=== PATIENT | female | born 2000 | race African-American/Black ===

== ENCOUNTER 2018-11-26 13:52 | Inpatient (IN) ==
--- NOTE | 2018-11-26 14:10 | OB/GYN PROGRESS NOTE ---
Progress Note OB - . OB Progress Note: Vital Signs - 24 hr 11/26/18 13:34 Temperature 98 F Pulse Rate 80 Respiratory Rate 18 Blood Pressure 135/81 O2 Sat by Pulse Oximetry 100 18 YOBF with IUP at 37.5 weeks presents with c/o contractions since this AM. Thinks she has been leaking. FM +. Denies bleeding. Pt sees Dr Grimes. PMH: denies PSH: denies OB Hx: x2 NKDA SHx: non-smoker Meds: PNV, Fe, stool softner PE: RRR w/o M Pul: clear No CVAT No calf tenderness, no edema Fundus: soft and nontender Abd: soft , nontender Pelvic: 5/70/-2/vtx, clear fluid A/P: IUP 37 weeks in labor with ruptured membranes. Pt is GBS neg. Admit L&D. FHR baseline 130 with accels, 15x15. Cat 1 tracing.
[2018-11-26] MEDS ORDERED: REGLAN PO ONE (14:57)
[2018-11-26] MEDS ORDERED: STADOL IV PRN (14:57)
[2018-11-26] MEDS ORDERED: TYLENOL PO PRN (14:57)
[2018-11-26] MEDS ORDERED: PEPCID PO ONE (14:57)
[2018-11-26] MEDS ORDERED: ZOFRAN IV PRN (14:57)
[2018-11-26] MEDS ORDERED: KEFZOL 1 GM/D5W 1 GM/50 ML IVPB IV PRN (14:57)
[2018-11-26] MEDS ORDERED: PEPCID PO PRN (14:57)
[2018-11-26] MEDS ORDERED: LR 500 ML IV ONE (14:57)
[2018-11-26] MEDS ORDERED: PEPCID IV PRN (14:57)
[2018-11-26] MEDS ORDERED: LR 1,000 ML IV SCH (15:00)
[2018-11-26] MEDS ORDERED: SODIUM CHLORIDE 0.9% INJ SCH (15:00)
[2018-11-26] MEDS ORDERED: PITOCIN 30 UNITS/NS 30 UNIT/500 ML IV.SOLN IV SCH ×2 (15:00→19:30)
[2018-11-26] MEDS ORDERED: FENTANYL-BUPIV-NS 2 MCG-0.1% 250 ML EPIDURAL PRN (15:51)
[2018-11-26 15:52] LABS: BASO# 0.04 X1000 (0.0-0.2); BASO% 0.4 % (0.0-0.8); EOS# 0.24 X1000 (0.0-0.7); EOS% 2.2 % (0.0-10.0); HEMATOCRIT 25.9 % (37.0-47.0); HEMOGLOBIN 7.8 g/dL (12.0-16.0); IMM GRAN# 0.06 X1000 (0.0-0.04); IMM GRAN% 0.6 % (0.0-0.5); LYMPH% 16.7 % (20.5-51.1); MCH 22.8 PG (27-31); MCHC 30.1 g/dL (33-37); MCV 75.7 FL (81-99); MONO# 0.92 X1000 (0.11-0.59); MONO% 8.5 % (1.7-9.3); MPV 10.2 FL (7.4-10.4); NEUT# 7.71 X1000 (1.4-6.5); NEUT% 71.6 % (42.2-75.2); PLT 283 X1000 (130-400); RBC 3.42 XMIL (4.2-5.4); RDW 18.7 % (11.5-14.5); WBC 10.77 X1000 (4.8-10.8)
[2018-11-26] MEDS ORDERED: MARCAINE 0.25% PF INJ ONE (15:56)
[2018-11-26] MEDS ORDERED: NAROPIN 0.2% INJ ONE (16:00)
[2018-11-26 16:48] LABS: URINE SOURCE VOIDED
[2018-11-26 17:07] LABS: BILIRUBIN URINE NEGATIVE (NEGATIVE); BLOOD URINE 2+ (NEGATIVE); CLARITY VERY CLOUDY (CLEAR); COLOR YELLOW; GLUCOSE URINE NEGATIVE (NEGATIVE); KETONE URINE NEGATIVE (NEGATIVE); LEUKOCYTES URINE 1+ (NEGATIVE); NITRITE URINE NEGATIVE (NEGATIVE); PROTEIN URINE TRACE mg/dL (NEGATIVE); SP GRAVITY URINE 1.005; UROBILINOGEN URINE NORMAL
[2018-11-26] MEDS ORDERED: XYLOCAINE-MPF 1% INJ PRN (19:17)
[2018-11-26] MEDS ORDERED: HYDROXYZINE IM PRN (19:17)
[2018-11-26] MEDS ORDERED: AMBIEN PO PRN (19:17)
[2018-11-26] MEDS ORDERED: BENADRYL PO PRN (19:17)
[2018-11-26] MEDS ORDERED: BENADRYL IV PRN (19:17)
[2018-11-26] MEDS ORDERED: ATARAX PO PRN (19:17)
[2018-11-26] MEDS ORDERED: CYTOTEC PO PRN (19:17)
[2018-11-26] MEDS ORDERED: MINERAL OIL PO PRN (19:17)
[2018-11-26] MEDS ORDERED: M-M-R II VACCINE SUBQ ONE (19:17)
[2018-11-26] MEDS ORDERED: PITOCIN IM PRN (19:17)
[2018-11-26] MEDS ORDERED: PERI MEDS (DERMOPLAST/NUPERCAINAL/TUCKS) MISC PRN (19:17)
[2018-11-26] MEDS ORDERED: BOOSTRIX VACCINE IM ONE (19:17)
--- NOTE | 2018-11-26 19:25 | OB/GYN PROGRESS NOTE ---
Progress Note OB - . OB Progress Note: Vital Signs - 24 hr 11/26/18 13:34 11/26/18 14:00 11/26/18 16:00 Temperature 98 F 97.3 F L 97.2 F L Pulse Rate 80 79 85 Respiratory Rate 18 18 18 Blood Pressure 135/81 123/70 134/82 O2 Sat by Pulse Oximetry 100 100 99 11/26/18 16:40 Temperature 97.3 F L Pulse Rate 81 Respiratory Rate 18 Blood Pressure 116/68 O2 Sat by Pulse Oximetry 99 Laboratory Results - last 24 hr 11/26/18 11/26/18 11/26/18 14:01 15:15 15:15 WBC 10.77 RBC 3.42 L Hgb 7.8 L Hct 25.9 L MCV 75.7 L MCH 22.8 L MCHC 30.1 L RDW Std Deviation 18.7 H Plt Count 283 MPV 10.2 Immature Gran % (Auto) 0.6 H Neut % (Auto) 71.6 Lymph % (Auto) 16.7 L [place] % (Auto) 8.5 Eos % (Auto) 2.2 Baso % (Auto) 0.4 Immature Gran # (Auto) 0.06 H Neut # (Auto) 7.71 H Lymph # (Auto) 1.80 [place] # (Auto) 0.92 H Eos # (Auto) 0.24 Baso # (Auto) 0.04 Urine Source VOIDED Urine Color YELLOW Urine Clarity VERY CLOUDY A Urine pH 8.0 Ur Specific [place] 1.005 Urine Protein TRACE A Urine Ketones NEGATIVE Urine Blood 2+ A Urine Nitrite NEGATIVE Urine Bilirubin NEGATIVE Urine Urobilinogen NORMAL Urine WBC 1+ A Urine Glucose NEGATIVE RPR NON-REACTIVE Delivery Note: of a living male over an intact perineum. Placenta delivered spontaneous intact. First degree Perineal laceration repaired with 3-0 chromic. 9-10 Wt: 6 lb 13 oz Male EBL 300 Pt. tolerated procedure well.
[2018-11-26] MEDS ORDERED: PITOCIN 20 UNITS/NS 20 UNITS/1,000 ML IV.SOLN ONE (19:33)
[2018-11-26] MEDS: NORCO-5 PO PRN (20:22)
[2018-11-26] MEDS: MOTRIN PO PRN (20:23)
[2018-11-26 21:32] LABS: UR AMPHETAMINES QUAL NONE DETECTED (NONE DETECT); UR BARBITUATES QUAL NONE DETECTED (NONE DETECT); UR BENZODIAZEPIN QUAL NONE DETECTED (NONE DETECT); UR CANNABINOIDS QUAL NONE DETECTED (NONE DETECT); UR COCAINE QUAL NONE DETECTED (NONE DETECT); UR METHADONE QUAL NONE DETECTED (NONE DETECT); UR METHAMPHETAMINE QUAL NONE DETECTED (NONE DETECT); UR OPIATES QUAL NONE DETECTED (NONE DETECT); UR OXYCODONE QUAL NONE DETECTED (NONE DETECT); UR PCP QUAL NONE DETECTED (NONE DETECT); UR PROPOXYPHENE QUAL NONE DETECTED (NONE DETECT); UR TCA QUAL NONE DETECTED (NONE DETECT)
[2018-11-27] MEDS: PERICOLACE PO SCH ×2 (04:34→21:44)
[2018-11-27] MEDS: NORCO-5 PO PRN ×3 (07:00→21:44)
[2018-11-27] MEDS: MOTRIN PO PRN ×2 (07:00→14:54)
[2018-11-27 07:49] LABS: HEMATOCRIT 24.1 % (37.0-47.0); HEMOGLOBIN 7.2 g/dL (12.0-16.0); MCH 22.9 PG (27-31); MCHC 29.9 g/dL (33-37); MCV 76.5 FL (81-99); PLT 260 X1000 (130-400); RBC 3.15 XMIL (4.2-5.4); RDW 18.7 % (11.5-14.5); WBC 11.69 X1000 (4.8-10.8)
[2018-11-27 07:50] LABS: BASO# 0.04 X1000 (0.0-0.2); BASO% 0.3 % (0.0-0.8); EOS# 0.27 X1000 (0.0-0.7); EOS% 2.3 % (0.0-10.0); IMM GRAN# 0.03 X1000 (0.0-0.04); IMM GRAN% 0.3 % (0.0-0.5); LYMPH# 2.02 X1000 (1.2-3.4); LYMPH% 17.3 % (20.5-51.1); MONO# 1.14 X1000 (0.11-0.59); MONO% 9.8 % (1.7-9.3); MPV 10.2 FL (7.4-10.4); NEUT# 8.19 X1000 (1.4-6.5)
[2018-11-27] MEDS: FERROUS SULFATE PO SCH (08:41)
[2018-11-28] MEDS: MOTRIN PO PRN (02:59)
[2018-11-28] MEDS: NORCO-5 PO PRN ×2 (02:59→07:58)
[2018-11-28 06:42] LABS: BASO# 0.04 X1000 (0.0-0.2); BASO% 0.4 % (0.0-0.8); EOS# 0.45 X1000 (0.0-0.7); EOS% 4.6 % (0.0-10.0); HEMATOCRIT 26.5 % (37.0-47.0); HEMOGLOBIN 8.1 g/dL (12.0-16.0); IMM GRAN# 0.06 X1000 (0.0-0.04); IMM GRAN% 0.6 % (0.0-0.5); LYMPH# 3.11 X1000 (1.2-3.4); LYMPH% 31.6 % (20.5-51.1); MCH 23.4 PG (27-31); MCHC 30.6 g/dL (33-37); MCV 76.6 FL (81-99); MONO% 9.1 % (1.7-9.3); MPV 9.8 FL (7.4-10.4); NEUT# 5.29 X1000 (1.4-6.5); NEUT% 53.7 % (42.2-75.2); PLT 282 X1000 (130-400); RBC 3.46 XMIL (4.2-5.4); RDW 19.2 % (11.5-14.5); WBC 9.85 X1000 (4.8-10.8)
--- NOTE | 2018-11-28 08:21 | OB/GYN PROGRESS NOTE ---
Progress Note OB - . OB Progress Note: Vital Signs - 24 hr 11/27/18 12:39 11/27/18 16:30 11/27/18 21:46 Temperature 96.9 F L 97.1 F L 97.5 F L Pulse Rate 64 61 59 L Respiratory Rate 20 20 18 Blood Pressure 119/77 129/75 118/69 O2 Sat by Pulse Oximetry 100 100 11/28/18 03:00 Temperature 97.2 F L Pulse Rate 58 L Respiratory Rate 18 Blood Pressure 148/72 O2 Sat by Pulse Oximetry Laboratory Results - last 24 hr 11/28/18 06:17 WBC 9.85 RBC 3.46 L Hgb 8.1 L Hct 26.5 L MCV 76.6 L MCH 23.4 L MCHC 30.6 L RDW Std Deviation 19.2 H Plt Count 282 MPV 9.8 Immature Gran % (Auto) 0.6 H Neut % (Auto) 53.7 Lymph % (Auto) 31.6 [place] % (Auto) 9.1 Eos % (Auto) 4.6 Baso % (Auto) 0.4 Immature Gran # (Auto) 0.06 H Neut # (Auto) 5.29 Lymph # (Auto) 3.11 [place] # (Auto) 0.90 H Eos # (Auto) 0.45 Baso # (Auto) 0.04 18 yo PPD#2 s/p , late PNC, anemia Patient seen and examined. No complaints this AM, pain controlled. She notes minimal lochia. She is ambulating and voiding without difficulty. She is tolerating a regular diet, denies nausea/vomiting. She denies any dizziness/lightheadedness with ambulation. She received late care at [facility]. SS consult due to late PNC. She is bottle feeding. She desires Mirena IUD for pp contraception. Physical Exam-General - PHYSICAL EXAM-ADULT Initial Vital Signs Reviewed: Yes - CONSTITUTIONAL General Appearance: appears well, alert, no apparent distress - EYES Eyes: PERRL/EOMI - HEAD, EARS, NOSE, MOUTH & THROAT HENMT: normocephalic/atraumatic - RESPIRATORY Respiratory: lungs clear, normal breath sounds, no respiratory distress - CARDIOVASCULAR Cardiovascular: normal peripheral pulses, regular rate, rhythm - GASTROINTESTINAL (ABDOMEN) Abdominal Exam: normal bowel sounds, non tender, soft (fundus firm, below umbilicus) - MUSCULOSKELETAL Extremity: normal range of motion, non-tender - PSYCHIATRIC Psych/Mental Status: normal mood/affect Assessment/Plan - Assessment/Plan Assessment: 18 yo PPD#2 s/p with late PNC, anemia 1. HD stable, afebrile. Hgb 8.1 2. Ferrous sulfate 325mg PO BID for anemia 3. SS consult for late PNC 4. Encourage ambulation 5. D/C home today, follow-up in clinic in [address] Johnson 6. Desires Mirena for PP contraception 7. S/p infant circumcision on 11/27
[2018-11-28 08:26] VITALS: BP 121/67
[2018-11-28] MEDS: FERROUS SULFATE PO SCH (09:13)
--- NOTE | 2018-11-29 06:35 | DISCHARGE SUMMARY ---
ADMISSION DATE: 11/26/2018 DISCHARGE DATE: 11/28/2018 ADMITTING PHYSICIAN: Dr. Sean Verduzco. CONDITION ON DISCHARGE: Stable. FINAL DIAGNOSES: 1. 18-year-old G3, P3-0-0-3, day #2 status post spontaneous vaginal delivery at 37 weeks and 5 days. 2. Late to care. 3. Anemia. HISTORY OF PRESENT ILLNESS: A 18-year-old G3, P2-0-0-2 at 37 weeks and 5 days presented to Labor and delivery complaining of contractions and leaking fluid. Rupture of membranes was confirmed and she was admitted to Labor and Delivery. She underwent a spontaneous vaginal delivery on 11/26 of a male infant, 's 9 and 10. The patient was late to care, she states that she has been seeing a female provider at [facility]. Upon arrival, hemoglobin was 7.8, and on day #1, hemoglobin was 7.2. She denied any dizziness or lightheadedness with ambulation or standing up. Hemoglobin was repeated on 11/28/2018 and was 8.1. She was started on iron p.o. daily. She had a routine course. Infant was circumcised on 11/27. On day #2, she was deemed stable for discharge. She plans to follow up with [facility] for her care. She plans to have an IUD inserted at her 6 week visit. She is bottle-feeding. FOLLOWUP INSTRUCTIONS: Notify doctor with temperature greater than 100.4 degrees Fahrenheit, heavy vaginal bleeding greater than 1 pad an hour, foul-smelling discharge, severe abdominal pain. Place nothing in the vagina for 6 weeks, no tampons/douching/sex. FOLLOWUP APPOINTMENT: Follow up with [facility] in 6 weeks for visit. DISCHARGE MEDICATIONS: 1. Motrin 800 mg p.o. q.8 hours p.r.n. pain, dispense #30. 2. Ferrous sulfate 325 mg p.o. b.i.d. cc: Sean Verduzco MD [facility]
== END 2018-11-28 12:04 | disposition home or self-care (01) | DRG 805 ==
LOC: P.NBC 13:52 → P.LD 13:53
PROVIDERS: ADMIT Obstetrics & Gynecology; ATTEND Obstetrics & Gynecology

== ENCOUNTER 2019-05-13 14:32 | Inpatient (IN) ==
[2019-05-13] MEDS ORDERED: NS 1,000 ML IV ONE ×2 (14:44→17:11)
[2019-05-13] MEDS ORDERED: ZOFRAN IV ONE (14:55)
[2019-05-13 14:56] LABS: URINE SOURCE CLEAN CATCH
--- NOTE | 2019-05-13 14:57 | PROVIDER DOCUMENTATION ---
HPI-Abdominal Pain/GI Problem - General Chief Complaint: N/V/D Stated Complaint: N/V/D Time Seen by Provider: 05/13/19 14:42 Source: patient Allergies/Adverse Reactions: Patient Allergies Allergy/AdvReac Type Severity Reaction Status Date / Time No Known Allergies Allergy Verified 11/19/18 13:40 Home Medications: Home Medication List Medication Instructions Recorded Confirmed Last Taken Type NK [No Home Medications] 05/13/19 05/13/19 Unknown History - History of Present Illness-ABD Nature of Presenting Problems: 18yof present to ER with c/o nvd onset 2 days ago. Reports bodyaches and chills. Denies urinary s/s. Quality of Pain: reports: none Onset/Duration: reports: 2 days ago Activities at Onset: reports: none Modifying Factors: improves with: nothing Associated Symptoms: reports: diarrhea, fever/chills, nausea, vomiting. denies: genitourinary problems Last BM: this afternoon Dark Stools Present?: reports: none noticed Rectal Bleeding: reports: none Rectal Pain: reports: none Review of Systems - Adult - REVIEW OF SYSTEMS - ADULT Constitutional: reports: see HPI, chills, fatique Eyes: reports: no symptoms reported Ears, Nose, Mouth & Throat: reports: no symptoms reported Cardiovascular: reports: no symptoms reported Respiratory: reports: no symptoms reported Gastrointestinal: reports: see HPI, diarrhea, nausea, vomiting. denies: abdominal pain Genitourinary: reports: no symptoms reported. denies: dysuria, frequency Musculoskeletal: reports: no symptoms reported Integumentary: reports: no symptoms reported Neurological: reports: no symptoms reported Psychiatric: reports: no symptoms reported Endocrine: reports: no symptoms reported Hematologic/Lymphatic: reports: no symptoms reported Allergic/Immunologic: reports: no symptoms reported All Other Systems: Reviewed and Negative Past History - Adult - PAST MEDICAL HISTORY-ADULT Review of Records: reports: Old Records Reviewed, Nursing Assessment Review, Medications Reviewed, Social history reviewed & non-contributory. Major Childhood Illnesses: reports: denies history Cardiovascular: reports: denies history Respiratory: reports: asthma Gastrointestinal: reports: denies history Obstetrical/Gynecological: reports: denies history Genitourinary: reports: denies history Musculoskeletal: reports: denies history Neurological: reports: denies history Endocrine/Immune: reports: denies history Other Conditions: reports: eczema - PRIOR SURGERIES/PROCEDURES Surgical/Procedure History: reports: none - IMMUNIZATION STATUS Childhood Immunizations: See Nurse Assessment Flu Vaccine: See Nurse Assessment - FAMILY HISTORY Family History: reviewed, not pertinent Physical Exam-General - PHYSICAL EXAM-ADULT Initial Vital Signs Reviewed: Yes - CONSTITUTIONAL General Appearance: alert, no apparent distress - HEAD, EARS, NOSE, MOUTH & THROAT HENMT: normal ENT inspection, other (dry mucous membranes) - NECK Neck: full range of motion, supple, normal inspection - RESPIRATORY Respiratory: lungs clear, normal breath sounds, no respiratory distress, no accessory muscle use - CARDIOVASCULAR Cardiovascular: tachycardia - GASTROINTESTINAL (ABDOMEN) Abdominal Exam: normal bowel sounds, non tender, soft. negative: distended, guarding, rigid, rebound - LYMPHATIC Lymphatic: no adenopathy - MUSCULOSKELETAL Back Exam: normal inspection, no CVA tenderness, no vertebral tenderness Extremity: normal range of motion, normal gait, normal inspection - SKIN Integumentary: normal color, warm/dry. negative: diaphoresis, pallor - NEUROLOGIC Neurologic: grossly normal - PSYCHIATRIC Psych/Mental Status: normal mood/affect, normal thought content, normal thought process Progress - PLAN OF CARE/RESULTS Progress/Plan/Lab Results: Vital Signs - 8 hr 05/13/19 14:37 Temperature 98.6 F Pulse Rate 131 H Respiratory Rate 20 Blood Pressure 100/60 O2 Sat by Pulse Oximetry 98 Bedside Urine ED: Urine Bedside Start: 05/13/19 14:42 Freq: ORDERED Status: Active Protocol: Activity Type Activity Date Activity User E-Sign Co-Sign Detail Recorded Client Recorded Date Recorded By Document 05/13/19 14:51 [id number] 05/13/19 14:51 [id number] 05/13/19 14:51 Point of Care [Bedside Point of Care] -Lot # [id number] - Results Negative -Control Line Visible? Yes Orders Category Date Time Status Cardiac Monitoring DIRECTED Care 05/13/19 14:42 Active ED: Urine Bedside ORDERED Care 05/13/19 14:42 Active NEWS Score 2-4:Order NEWS Lactate Series NOW Care 05/13/19 14:41 Active Nursing- Obtain EKG ONCE Care 05/13/19 14:44 Active CBC WITH DIFF [HEME] Stat Lab 05/13/19 14:43 Ordered COMPREHENSIVE METABOLIC PANEL [CHEM] Stat Lab 05/13/19 14:43 Uncollected LACTATE, PLASMA [CHEM] Q3H Lab 05/13/19 15:00 Uncollected LACTATE, PLASMA [CHEM] Q3H Lab 05/13/19 18:00 Uncollected LACTATE, PLASMA [CHEM] Q3H Lab 05/13/19 21:00 Uncollected LIPASE [CHEM] Stat Lab 05/13/19 14:43 Uncollected URINALYSIS W/POSS RFLX CULT [URINALYSIS] Stat Lab 05/13/19 14:51 Ordered URINE DRUG SCREEN PL Stat Lab 05/13/19 14:51 Ordered 0.9% Sodium Chloride Inj [Ns] 1,000 ml Med 05/13/19 14:44 Active IV 999 mls/hr EKG [EKG] Stat Ther 05/13/19 14:44 Ordered Result Diagrams: 05/16/19 05:23 05/16/19 05:23 - REASSESSMENT Reassessment #1 Time Reassessed: 15:44 (Blood noted on UA, Pt states she is currently on her period) Reassessment #2 Time Reassessed: 17:18 (HR improved 88bpm. No nv since arrival. Discussed results thus far with pt) Departure - Departure Date of Disposition Decision: 05/13/19 Time of Disposition Decision: 17:42 DIAGNOSIS: Vomiting and diarrhea, Hypokalemia, Acute kidney injury Leukocytosis Qualifiers: Leukocytosis type: unspecified Qualified Code(s): D72.829 - Elevated white blood cell count, unspecified UTI (urinary tract infection) Qualifiers: Urinary tract infection type: acute cystitis Hematuria presence: without hematuria Qualified Code(s): N30.00 - Acute cystitis without hematuria Disposition: ADMITTED INPATIENT 09 Certified Medical Emergency: Emergent Condition: Fair - Critical Care Note This patient required my direct & personal management of CC.: No Attestation - Physician/ CHOLO Attestation Patient care was provided by Advanced Practice Provider:: Yes Advanced Practice Provider:: Emma Osorio Advanced Practice Provider documentation review:: The Mid-level provider documentation, treatment plan and medical decision making was reviewed by the physician who agrees with all treatment and medical decision making by the MLP. The physician spent face to face time with patient:: No Advanced Practice Provider documentation review:: Supervising physician onsite and consulted in the evaluation and care of this patient. The physician did not have a face to face encounter with the patient.
[2019-05-13 15:21] LABS: COLOR RED
[2019-05-13 15:22] LABS: BILIRUBIN URINE NEGATIVE (NEGATIVE); GLUCOSE URINE NEGATIVE (NEGATIVE); KETONE URINE TRACE mg/dL (NEGATIVE); TURBIDITY URINE TURBID (CLEAR)
[2019-05-13 15:23] LABS: BLOOD URINE LARGE (NEGATIVE); PH URINE 6.5
[2019-05-13 15:24] LABS: NITRITE URINE NEGATIVE (NEGATIVE); PROTEIN URINE 300 mg/dL (NEGATIVE); UROBILINOGEN URINE NORMAL (NORMAL)
[2019-05-13 15:25] LABS: LEUKOCYTES URINE SMALL (NEGATIVE); UR AMPHETAMINES QUAL NONE DETECTED (NONE DETECT); UR BARBITUATES QUAL NONE DETECTED (NONE DETECT); UR BENZODIAZEPIN QUAL NONE DETECTED (NONE DETECT); UR CANNABINOIDS QUAL PRESUMPTIVE POSITIVE (NONE DETECT); UR COCAINE QUAL NONE DETECTED (NONE DETECT); UR METHADONE QUAL NONE DETECTED (NONE DETECT); UR METHAMPHETAMINE QUAL NONE DETECTED (NONE DETECT); UR OPIATES QUAL NONE DETECTED (NONE DETECT); UR OXYCODONE QUAL NONE DETECTED (NONE DETECT); UR PCP QUAL NONE DETECTED (NONE DETECT); UR PROPOXYPHENE QUAL NONE DETECTED (NONE DETECT); UR TCA QUAL NONE DETECTED (NONE DETECT)
[2019-05-13 15:26] LABS: UR EPITHELIAL CELLS <10 /HPF (<10); URINE BACTERIA 1+ /HPF; URINE RBC TNTC /HPF (<10)
[2019-05-13 15:42] LABS: INFLUENZA A NEGATIVE (NEGATIVE); INFLUENZA B NEGATIVE (NEGATIVE)
--- NOTE | 2019-05-13 15:46 | EKG Report ---
Test Performed on : 05/13/2019 3:19:02 PM Test Reason : tachycardia Blood Pressure : / mmHG Vent. Rate : 090 BPM Atrial Rate : 092 BPM P-R Int : 154 ms QRS Dur : 094 ms QT Int : 356 ms P-R-T Axes : 055 065 037 degrees QTc Int : 435 ms Normal sinus rhythm. Possible Left atrial enlargement Incomplete right bundle branch block Borderline ECG When compared with ECG of 13-MAY-2019 15:18, (Unconfirmed) No significant change was found Unconfirmed Result
[2019-05-13 15:51] LABS: URINE CASTS NONE SEEN; URINE CRYSTALS NONE SEEN; URINE SMALL ROUND CELLS NONE SEEN; URINE YEAST NONE SEEN
[2019-05-13 16:59] LABS: BASO# 0.03 X1000 (0.0-0.2); BASO% 0.1 % (0.0-0.8); EOS# 0.03 X1000 (0.0-0.7); EOS% 0.1 % (0.0-10.0); HEMOGLOBIN 8.5 g/dL (12.0-16.0); IMM GRAN# 0.13 X1000 (0.0-0.04); IMM GRAN% 0.6 % (0.0-0.5); LYMPH# 1.27 X1000 (1.2-3.4); LYMPH% 5.8 % (20.5-51.1); MCH 24.4 PG (27-31); MCHC 32.7 g/dL (33-37); MCV 74.7 FL (81-99); MONO# 2.54 X1000 (0.11-0.59); MONO% 11.7 % (1.7-9.3); NEUT# 17.73 X1000 (1.4-6.5); NEUT% 81.7 % (42.2-75.2); PLT 304 X1000 (130-400); RBC 3.48 XMIL (4.2-5.4); RDW 16.6 % (11.5-14.5); WBC 21.73 X1000 (4.8-10.8)
[2019-05-13 17:08] LABS: ALBUMIN 3.7 g/dL (3.5-5.0); CALCIUM 8.2 mg/dL (8.8-10.2); CREATININE 1.9 mg/dL (0.5-0.9); POTASSIUM 3.1 mmol/L (3.5-5.1); TOTAL BILIRUBIN 0.3 mg/dL (0.20-1.00); TOTAL PROTEIN 7.4 g/dL (6.3-8.3)
[2019-05-13] MEDS ORDERED: KLOR-CON PO ONE (17:11)
[2019-05-13 17:51] LABS: ANISOCYTOSIS 1+; BANDS 1 % (0-1); HYPOCHROM 1+; LYMPHS 8 % (21-51); MICROCYTOSIS 1+; MONO 2 % (1-9); SEGS 89 % (42-75)
[2019-05-13 17:52] LABS: OVALOCYTES OCCASIONAL; POIKILOCYTOSIS OCCASIONAL; TARGET CELLS OCCASIONAL
--- NOTE | 2019-05-13 18:02 | Diag Imaging Result Doc PS360 ---
CT ABDOMEN/PELVIS W/O CONTRAST - 05/13/2019 INDICATION: nv elevated WBC COMPARISON: None FINDINGS: The lung bases are clear and the heart size is normal. No radiodense renal stones. No hydronephrosis or hydroureter. Abdominal organs are grossly normal. No obvious bowel obstruction or inflammation. Appendix is not visible. No free air or free fluid. Urinary bladder and rectum are normal. Bones are intact and well mineralized. IMPRESSION: Negative exam. This exam was performed using automated exposure control, adjustment of mA or kV according to patient size, and/or use of iterative reconstruction technique Electronically signed by Alhaji Zuniga 05/13/2019 6:00 PM
--- NOTE | 2019-05-13 18:09 | Diag Imaging Result Doc PS360 ---
CHEST-1 VIEW - 05/13/2019 INDICATION: nv, elevated WBC COMPARISON: None FINDINGS: The lungs are normally expanded and clear. Heart size and mediastinal contours are normal. No pneumothorax or pleural effusion. IMPRESSION: Negative exam. Electronically signed by Alhaji Zuniga 05/13/2019 6:07 PM
[2019-05-13] MEDS ORDERED: NS + KCL 20 MEQ 1,000 ML IV ONE (18:41)
[2019-05-13] MEDS ORDERED: TYLENOL PO PRN (18:41)
[2019-05-13] MEDS ORDERED: PROTONIX IV SCH (18:45)
[2019-05-13] MEDS ORDERED: VANCOMYCIN IV PER PHARMACY MISC SCH (19:00)
[2019-05-13 19:13] LABS: IRON SATURATION 4 %; TIBC 338 ug/dL; TOTAL IRON 12 ug/dL (49-151); UNBOUND IRON 326 ug/dL (112-346)
[2019-05-13 19:24] LABS: UR CREAT RANDOM 448.3 mg/dL (11-20)
--- NOTE | 2019-05-13 19:31 | HISTORY AND PHYSICAL ---
PRIMARY CARE PROVIDER: No one, but she states she goes to [facility]. CHIEF COMPLAINT: Nausea and vomiting. HISTORY OF PRESENT ILLNESS: Ms. Migue Lilly is a 18-year-old female with no medical history, comes in with complaints that started on Monday evening of abdominal pain across the both upper quadrants of her abdomen. She drank some Coca-Cola in water, then started vomiting. This is also the last time she has really had any solid food. She has had diarrhea along with it and at night she has been having some chills along with sweats. The stools have been watery emesis has been clear or whatever it is she has drank. She states she still has no problems with urine output and that it is clear. She has not been on any recent antibiotics. White count here is significantly elevated. She is currently afebrile. She did have a heart rate of 131 with a blood pressure of 100/60 on presentation, but that has since all improved since she has received IV fluid hydration. She does have a lower potassium level, but this is most likely due to the vomiting and diarrhea. It does look like she may have urinary tract infection along with some acute kidney injury, so we will keep her here and hydrate her and recheck labs in the morning and we will also get her started on some broad-spectrum antibiotics. PAST MEDICAL HISTORY: Eczema. SURGICAL HISTORY: None. SOCIAL HISTORY: Denies tobacco or alcohol. She smokes marijuana on the weekends. However, she states she has not had any in the last 2 months because she is trying to find a job. She has 3 children. FAMILY HISTORY: Mother no medical history. Father no medical history. ALLERGIES: No known drug allergies. HOME MEDICATIONS: None. REVIEW OF SYSTEMS: Fourteen point review of systems are complete and all were negative, except for those mentioned above in the HPI. PHYSICAL EXAMINATION: VITAL SIGNS: Temperature 98.6 degrees, heart rate 90, respiratory rate 16, blood pressure 118/66, O2 saturation 100% on room air. She is 5 feet 6 inches tall 142 pounds. BMI of 22.9. GENERAL: Ms. Migue Lilly is a 18-year-old Afro[place] female. She is in no acute distress. She is able answer questions appropriately. HEENT: Atraumatic, normocephalic. Pupils equal, round, reactive to light. Extraocular movements intact. Mucous membranes are dry. NECK: Trachea midline. CARDIOVASCULAR: S1, S2. Regular rate and rhythm. No rubs, gallops, murmurs. No lower extremity edema. +2 dorsalis radial pulses. Negative for JVD or carotid bruits. PULMONARY: Clear to auscultate bilateral breath sounds. No accessory muscle use or work of breathing noted. GI: Soft, tender in the bilateral upper quadrants. Positive bowel sounds x4. EXTREMITIES: Moves all extremities equally. Full range of motion. NEUROLOGIC: A and O x3. Follows commands. Sensory is intact. SKIN: Warm, dry, intact, but dry. She has eczema patches all over her skin. LABORATORY DATA: White blood cells 21,000, hemoglobin 8, hematocrit 26, platelet count 304,000. Sodium 138, potassium 3.1, BUN 28, creatinine 1.9, glucose 115, calcium 8.2, bilirubin 0.30, AST 10, ALT 8, albumin 3.7, lipase 15, lactate 1.1. Urinalysis 300 protein, trace ketones, large blood, small leukocytes, 10 to 20 white blood cells, too numerous to count red blood cells, 1+ bacteria. Urine drug screen positive for cannabinoids. Influenza A and B are negative. IMAGING: Abdominal pelvic CT: Negative exam. Chest x-ray: Negative exam. EKG: Normal sinus rhythm, rate 90. QTc was 435. ASSESSMENT/PLAN: 1. Viral gastroenteritis. Leukocytosis most likely is due to the inflammation. She has had it for several days now. She is dehydrated. She can have antiemetics. We are going to hydrate her with IV fluids. We are also going to check stool for Clostridium difficile. 2. Hypokalemia, most likely secondary to the excessive diarrhea and vomiting. So, we will put KCl in her maintenance fluids. 3. Acute kidney injury with dehydration and a urinary tract infection. Again, she is going to receive IV fluid hydration. We are going to do urine studies and recheck a BUN and creatinine in the morning. 4. Anemia. She denies any blood in the stool or emesis. We will check stool for blood. We will do anemia labs as well. 5. Urinary tract infection. She is getting IV fluids. We will add IV antibiotics. 6. Possible sepsis. She was tachycardic, white count is up. However, lactate is negative. I feel like this is mostly due to the dehydration she was experiencing and I feel like the elevated white count is most likely due to an inflammatory response. 7. Eczema, stable. 8. Deep vein thrombosis prophylaxis with sequential compression devices. 9. Marijuana abuse. She claims to have not smoked in 2 months. Dictated by BELA Staples for Kain Maciel MD cc: BELA Staples MD
[2019-05-13] MEDS: SODIUM CHLORIDE 0.9% INJ SCH (20:13)
[2019-05-13] MEDS: ROCEPHIN 1 GM in NS 50 ML IV SCH (20:15)
[2019-05-13] MEDS ORDERED: VANCOMYCIN 1 GM/NS 1 GM/250 ML IVPB IV ONE (21:00)
--- NOTE | 2019-05-13 21:40 | HISTORY AND PHYSICAL ---
HISTORY: Patient presented to the hospital with nausea and vomiting. Notes she has not been able to keep anything down for the past couple days. Creatinine is elevated at 1.9. WBCs are also elevated. She does appear to have a urinary infection. We are going to admit the hospital. IV fluids and antibiotics and we will follow. cc: Kain Maciel MD
[2019-05-13 22:52] LABS: FERRITIN 328 ng/mL (13-150)
[2019-05-14 00:36] LABS: C DIFF TOXIN PL NEGATIVE (NEGATIVE); OCCULT BLOOD 1 POSITIVE (NEGATIVE)
[2019-05-14 06:45] LABS: BASO# 0.03 X1000 (0.0-0.2); BASO% 0.2 % (0.0-0.8); EOS# 0.09 X1000 (0.0-0.7); EOS% 0.6 % (0.0-10.0); HEMATOCRIT 23.8 % (37.0-47.0); HEMOGLOBIN 7.5 g/dL (12.0-16.0); IMM GRAN# 0.07 X1000 (0.0-0.04); IMM GRAN% 0.5 % (0.0-0.5); LYMPH# 1.42 X1000 (1.2-3.4); LYMPH% 9.4 % (20.5-51.1); MCH 23.7 PG (27-31); MCHC 31.5 g/dL (33-37); MCV 75.3 FL (81-99); MONO# 2.04 X1000 (0.11-0.59); MONO% 13.4 % (1.7-9.3); MPV 8.7 FL (7.4-10.4); NEUT# 11.52 X1000 (1.4-6.5); NEUT% 75.9 % (42.2-75.2); PLT 306 X1000 (130-400); RBC 3.16 XMIL (4.2-5.4); RDW 16.6 % (11.5-14.5); WBC 15.17 X1000 (4.8-10.8)
[2019-05-14 07:01] LABS: EOS 1 % (1-10); LYMPHS 6 % (21-51); MONO 4 % (1-9); SEGS 89 % (42-75)
[2019-05-14 07:03] LABS: ANISOCYTOSIS OCCASIONAL; HYPOCHROM 1+; POIKILOCYTOSIS 1+; SCHISTOCYTES OCCASIONAL; TARGET CELLS OCCASIONAL
[2019-05-14 07:04] LABS: BURR CELLS OCCASIONAL; OVALOCYTES OCCASIONAL
[2019-05-14 07:23] LABS: ALBUMIN 3.1 g/dL (3.5-5.0); CALCIUM 8.2 mg/dL (8.8-10.2); CREATININE 1.4 mg/dL (0.5-0.9); MAGNESIUM 1.8 mg/dL (1.5-2.7); POTASSIUM 3.8 mmol/L (3.5-5.1); TOTAL BILIRUBIN 0.3 mg/dL (0.20-1.00); TOTAL PROTEIN 6.1 g/dL (6.3-8.3)
[2019-05-14] MEDS: PROTONIX IV SCH ×2 (08:52→20:54)
[2019-05-14] MEDS: NS 1,000 ML IV SCH ×2 (08:52→23:43)
[2019-05-14] MEDS: CARAFATE LIQUID PO SCH ×3 (08:53→20:54)
[2019-05-14] MEDS: SODIUM CHLORIDE 0.9% INJ SCH ×2 (08:53→21:04)
[2019-05-14] MEDS ORDERED: VENOFER 500 MG in NS 250 ML IV ONE (09:00)
[2019-05-14] MEDS ORDERED: VANCOMYCIN 500 MG in NS 100 ML IV ONE (09:00)
[2019-05-14 09:32] LABS: HEMOGLOBIN A1C 6.3 % (4.8-6.0)
[2019-05-14] MEDS ORDERED: NS 500 ML IV ONE (12:14)
--- NOTE | 2019-05-14 14:18 | PROGRESS NOTE ---
DATE: 05/14/2019 SUBJECTIVE: Patient has no major complaints. OBJECTIVE: Vital Signs: Blood pressure 122/57, heart rate 83, respiratory rate of 18, temperature 100.2 degrees. Cardiovascular: Regular rate and rhythm. Pulmonary: Bilateral breath sounds clear to auscultation. Gastrointestinal: Abdomen soft, nontender, nondistended. Bowel sounds are positive. LABORATORY DATA: Her white count has decreased to 7 and 23, white count down to 15, hemoglobin and hematocrit down to 723. Platelets 306,000. Creatinine down to 1.4, A1c is 6.3. PROBLEM LIST: 1. Symptomatic anemia. Really unclear source. She does describe some symptoms consistent with menorrhagia. She is iron deficient with her initial possible sepsis and infection. We will go ahead and give her a unit of blood. There is no active bloody bowel movements. She had a positive Hemoccult, but she is actively menstruating. So I am not entirely sure that is accurate; that may be a false-positive. Diarrhea has improved. Requesting more food. 2. Urinary tract infection. She is on Rocephin. Cultures pending. 3. Acute kidney injury. That does seem to be improved. We will continue fluids and follow. DISPOSITION: If improved, we may let her go home tomorrow, pending the rest of her workup. I do think she may need a GI evaluation and she has an iron deficiency anemia, possibly also a DENTAL LABORATORY MANAGER evaluation, but we will continue to follow. cc: Ganga Bucio MD
[2019-05-14] MEDS ORDERED: BENADRYL PO ONE (14:30)
[2019-05-14] MEDS ORDERED: TYLENOL PO ONE (14:30)
[2019-05-14] MEDS: ZOFRAN IV PRN (14:58)
[2019-05-14] MEDS ORDERED: MOTRIN PO ONE (18:01)
[2019-05-14] MEDS: VANCOMYCIN 1,200 MG in NS 250 ML IV SCH (20:57)
[2019-05-14] MEDS ORDERED: NS IV SCH (21:00)
[2019-05-14] MEDS ORDERED: VANCOMYCIN IV SCH (21:00)
[2019-05-14] MEDS: ROCEPHIN 1 GM in NS 50 ML IV SCH (23:42)
[2019-05-15] MEDS: CARAFATE LIQUID PO SCH ×4 (03:00→20:06)
[2019-05-15 06:36] LABS: BASO# 0.04 X1000 (0.0-0.2); BASO% 0.4 % (0.0-0.8); EOS# 0.34 X1000 (0.0-0.7); HEMATOCRIT 26.1 % (37.0-47.0); HEMOGLOBIN 8.4 g/dL (12.0-16.0); IMM GRAN# 0.14 X1000 (0.0-0.04); IMM GRAN% 1.2 % (0.0-0.5); LYMPH# 1.53 X1000 (1.2-3.4); LYMPH% 13.5 % (20.5-51.1); MCH 24.4 PG (27-31); MCHC 32.2 g/dL (33-37); MCV 75.9 FL (81-99); MONO# 1.18 X1000 (0.11-0.59); MONO% 10.4 % (1.7-9.3); MPV 9.5 FL (7.4-10.4); NEUT% 71.5 % (42.2-75.2); PLT 322 X1000 (130-400); RBC 3.44 XMIL (4.2-5.4); RDW 17.4 % (11.5-14.5); WBC 11.33 X1000 (4.8-10.8)
[2019-05-15 06:43] LABS: AGAP 12; ALKALINE PHOSPHATASE 105 U/L (32-104); BUN 15 mg/dL (8-22); CALCIUM 8.1 mg/dL (8.8-10.2); CHLORIDE 108 mmol/L (98-107); COSMO 279; ESTIMATED GFR > 60; GLUCOSE 106 mg/dL (70-104); GOT 30 U/L (10-30); GPT 19 U/L (10-36); MAGNESIUM 1.8 mg/dL (1.5-2.7); POTASSIUM 3.5 mmol/L (3.5-5.1); SODIUM 139 mmol/L (136-145); TCO2 19 mmol/L (25-35); TOTAL PROTEIN 6.4 g/dL (6.3-8.3)
[2019-05-15] MEDS: PROTONIX IV SCH ×2 (07:54→20:06)
[2019-05-15] MEDS: NS 1,000 ML IV SCH ×2 (07:57→19:58)
[2019-05-15 09:49] LABS: LYMPHS 19 % (21-51); MONO 7 % (1-9); SEGS 74 % (42-75)
--- NOTE | 2019-05-15 10:39 | Diag Imaging Result Doc PS360 ---
US ABDOMEN-COMPLETE - 05/15/2019 INDICATION: ?gib; abd pain COMPARISON: CT from 04/14/2019 FINDINGS: There is significant wall thickening of the gallbladder. No gallbladder distention. No shadowing gallstones. The gallbladder wall measures about 5 mm. The patient is tender over the gallbladder. No biliary dilation. Common bile duct measures 3 mm. The liver, pancreas, spleen, and both kidneys are normal. Aorta, IVC, and main portal vein are patent. IMPRESSION: Thickened gallbladder wall. Tenderness over the gallbladder. Appears to represent cholecystitis. Consider correlating with a HIDA scan. Electronically signed by Alhaji Zuniga 05/15/2019 10:37 AM
[2019-05-15] MEDS: ZOFRAN IV PRN (14:43)
[2019-05-15] MEDS: VANCOMYCIN 1,200 MG in NS 250 ML IV SCH (19:59)
[2019-05-15] MEDS: ROCEPHIN 1 GM in NS 50 ML IV SCH (23:47)
--- NOTE | 2019-05-16 00:58 | PROGRESS NOTE ---
DATE: 05/15/2019 SUBJECTIVE: The patient notes that she is still nauseated, still not really been able to keep down anything orally. OBJECTIVE: Temperature 97.7 degrees, pulse 60, respiratory rate 18, BP 119/69.General: The patient is awake, pleasant. [*]respiratory distress. HEENT: Normocephalic. Neck supple. Cardiovascular: Regular rate. Chest clear. Abdomen soft. Extremities: Moves all extremities. ASSESSMENT: 1. Symptomatic anemia, improved after transfusion. 2. Mild leukocytosis. 3. Nausea, resolved. PLAN: We are going to advance her diet. If she can tolerate, hopefully she can discharge home. Otherwise she may need endoscopy. [*] cc: Kain Maciel MD
[2019-05-16] MEDS: ROCEPHIN 1 GM in NS 50 ML IV SCH ×2 (01:38→23:51)
[2019-05-16] MEDS: CARAFATE LIQUID PO SCH ×4 (01:39→21:33)
[2019-05-16 06:09] LABS: BASO# 0.08 X1000 (0.0-0.2); BASO% 0.6 % (0.0-0.8); EOS# 0.28 X1000 (0.0-0.7); EOS% 2.1 % (0.0-10.0); HEMATOCRIT 23.7 % (37.0-47.0); HEMOGLOBIN 7.7 g/dL (12.0-16.0); IMM GRAN# 0.16 X1000 (0.0-0.04); IMM GRAN% 1.2 % (0.0-0.5); LYMPH% 18.4 % (20.5-51.1); MCH 24.5 PG (27-31); MCHC 32.5 g/dL (33-37); MCV 75.5 FL (81-99); MONO# 2.28 X1000 (0.11-0.59); MONO% 17.5 % (1.7-9.3); MPV 9.7 FL (7.4-10.4); NEUT# 7.86 X1000 (1.4-6.5); NEUT% 60.2 % (42.2-75.2); PLT 401 X1000 (130-400); RBC 3.14 XMIL (4.2-5.4); RDW 17.3 % (11.5-14.5); WBC 13.06 X1000 (4.8-10.8)
[2019-05-16 06:17] LABS: AGAP 13; ALBUMIN 2.7 g/dL (3.5-5.0); ALKALINE PHOSPHATASE 115 U/L (32-104); BUN 8 mg/dL (8-22); CALCIUM 8.1 mg/dL (8.8-10.2); CHLORIDE 108 mmol/L (98-107); COSMO 276; CREATININE 0.8 mg/dL (0.5-0.9); ESTIMATED GFR > 60; GLUCOSE 97 mg/dL (70-104); GOT 39 U/L (10-30); GPT 32 U/L (10-36); MAGNESIUM 1.6 mg/dL (1.5-2.7); POTASSIUM 3.1 mmol/L (3.5-5.1); SODIUM 139 mmol/L (136-145); TCO2 18 mmol/L (25-35); TOTAL PROTEIN 6.2 g/dL (6.3-8.3)
[2019-05-16] MEDS ORDERED: TYLENOL PO PRN (06:45)
[2019-05-16] MEDS ORDERED: NS 500 ML IV ONE (07:36)
[2019-05-16] MEDS: NS 1,000 ML IV SCH ×4 (08:12→21:32)
[2019-05-16] MEDS ORDERED: STERILE WATER INJ. ONE (09:37)
[2019-05-16] MEDS ORDERED: NS 500 ML ONE (09:38)
[2019-05-16 09:49] LABS: EOS 1 % (1-10); LYMPHS 19 % (21-51); MONO 10 % (1-9); SEGS 70 % (42-75)
[2019-05-16] MEDS ORDERED: VANCOMYCIN 1,350 MG in NS 250 ML IV SCH (10:00)
[2019-05-16] MEDS: PROTONIX IV SCH ×2 (10:48→21:32)
--- NOTE | 2019-05-16 14:13 | Diag Imaging Result Doc PS360 ---
EXAM: HIDA SCAN W/ EJECTION FRACTION - 05/16/2019 HISTORY: cholecystitis TECHNIQUE: HIDA scan with ejection fraction. Exam performed using 5.3 mCi Tc 99m Choletec administered intravenously. COMPARISON: Exam is correlated with the 05/15/2019 ultrasound abdomen FINDINGS: There is prompt tracer uptake and excretion by the liver. The gallbladder is promptly visualized, with gallbladder activity visible on the initial (one minute) image. The gallbladder ejection fraction is calculated following administration 1.2 mcg CCK intravenously. The ejection fraction is calculated at 56%. There is passage of tracer into the small bowel when the gallbladder contracts. IMPRESSION: Prompt visualization of gallbladder. Within normal limits gallbladder ejection fraction at 56%. Electronically signed by Rome Prajapati 05/16/2019 2:11 PM
[2019-05-16] MEDS: ZOFRAN IV PRN (18:38)
[2019-05-16] MEDS: SODIUM CHLORIDE 0.9% INJ SCH (21:32)
--- NOTE | 2019-05-16 23:47 | PROGRESS NOTE ---
DATE: 05/16/2019 SUBJECTIVE: The patient notes that her nausea is still present. She actually is now complaining of right upper quadrant pain, which has localized a little bit more over the past 24 hours. PHYSICAL EXAMINATION: Temperature 97.7 degrees, pulse 60, respiratory rate 18, BP 119/69.General: The patient is a pleasant thin female who is in no current respiratory distress. HEENT: Normocephalic. Neck: Supple. Cardiovascular: Regular rate. Chest: Clear. Abdomen: Soft, tender in the right upper quadrant, as well as the epigastric region. Extremities: Moves all extremities. Neurologic: No changes. ASSESSMENT: 1. Symptomatic anemia. Hemoglobin and hematocrit is 7 and 23. We are going to transfuse 1 unit. 2. Hypokalemia, will replace. 3. Metabolic acidosis. 4. Gram-negative suhas urinary tract infection. Continue antibiotics. 5. Right upper quadrant pain. Ultrasound showed possible gallbladder wall thickening. HIDA scan is currently pending. We will treat those results when we have them. 6. Further orders as needed. cc: Kain Maciel MD
[2019-05-17] MEDS ORDERED: TYLENOL PO PRN (00:12)
[2019-05-17] MEDS ORDERED: ZOFRAN IV PRN (00:15)
[2019-05-17] MEDS ORDERED: VANCOMYCIN IV PER PHARMACY MISC SCH (00:30)
[2019-05-17] MEDS ORDERED: SODIUM CHLORIDE 0.9% INJ SCH (00:30)
[2019-05-17] MEDS: VANCOMYCIN 1,350 MG in NS 250 ML IV SCH ×2 (02:04→15:21)
[2019-05-17 07:27] LABS: BASO# 0.16 X1000 (0.0-0.2); BASO% 1.2 % (0.0-0.8); EOS# 0.37 X1000 (0.0-0.7); EOS% 2.8 % (0.0-10.0); HEMATOCRIT 28.8 % (37.0-47.0); HEMOGLOBIN 9.4 g/dL (12.0-16.0); IMM GRAN# 0.28 X1000 (0.0-0.04); IMM GRAN% 2.1 % (0.0-0.5); LYMPH# 2.02 X1000 (1.2-3.4); LYMPH% 15.3 % (20.5-51.1); MCH 24.7 PG (27-31); MCHC 32.6 g/dL (33-37); MCV 75.6 FL (81-99); MONO# 1.86 X1000 (0.11-0.59); MONO% 14.1 % (1.7-9.3); MPV 9.6 FL (7.4-10.4); NEUT# 8.52 X1000 (1.4-6.5); NEUT% 64.5 % (42.2-75.2); PLT 509 X1000 (130-400); RBC 3.81 XMIL (4.2-5.4); RDW 17.3 % (11.5-14.5); WBC 13.21 X1000 (4.8-10.8)
[2019-05-17 07:51] LABS: AGAP 11; ALB/GLOB RATIO 0.8; ALBUMIN 2.8 g/dL (3.5-5.0); ALKALINE PHOSPHATASE 106 U/L (32-104); BUN 5 mg/dL (8-22); CHLORIDE 108 mmol/L (98-107); COSMO 284; CREATININE 0.8 mg/dL (0.5-0.9); ESTIMATED GFR > 60; GLUCOSE 97 mg/dL (70-104); GOT 16 U/L (10-30); GPT 23 U/L (10-36); MAGNESIUM 1.6 mg/dL (1.5-2.7); POTASSIUM 3.3 mmol/L (3.5-5.1); SODIUM 144 mmol/L (136-145); TCO2 25 mmol/L (25-35); TOTAL BILIRUBIN 0.52 mg/dL (0.20-1.00); TOTAL PROTEIN 6.4 g/dL (6.3-8.3)
[2019-05-17] MEDS: PROTONIX IV SCH ×2 (12:29→21:31)
[2019-05-17] MEDS: CARAFATE LIQUID PO SCH ×4 (12:30→21:31)
--- NOTE | 2019-05-17 14:50 | GASTROENTEROLOGY CONSULTATION ---
DATE: 05/17/2019 PATIENT PROFILE: A 18-year-old female. REASON FOR CONSULTATION: GI bleed and anemia. HISTORY OF PRESENT ILLNESS: Ms. Lilly is a 18-year-old female, who was at [facility] with complains of nausea, vomiting and abdominal pain. The patient mentioned that she drank some Coke and then started vomiting. Along with nausea and vomiting, patient also had diarrhea, fever, chills and sweats. She has denied noticing any blood in emesis or blood in her stools. The patient was sent to [facility] on 05/13/2019. Currently, the patient still complains of nausea, vomiting and RUQ pain. She does have right upper quadrant abdominal pain, rating it as 7/10, and describing it as stabbing/shooting pain. The patient's hemoglobin and hematocrit were 8.5 and 26.0; today it is 9.4 and 28.2. The patient so far received 2 units of blood. Her abdomen and pelvis CT on admission was negative. Chest x-ray was negative. The patient had an abdominal ultrasound on 05/14 and it showed that she had thickening gallbladder wall, tenderness over the gallbladder and appears to represent cholecystitis. A HIDA scan was done yesterday and it showed prompt visualization of the gallbladder within normal limits. Gallbladder ejection fraction is at 36%. PAST MEDICAL HISTORY: Eczema. PAST SURGICAL HISTORY: None. SOCIAL HISTORY: The patient is single. She denies any alcohol or tobacco use, but she does consume marijuana. FAMILY HISTORY: Significant for diabetes, hypertension and kidney disease. ALLERGIES: No known drug allergies. HOME MEDICATIONS: Cortizone cream REVIEW OF SYSTEMS: As per HPI. Otherwise, 12 point review of system is negative. PHYSICAL EXAMINATION: Vital Signs: Temperature 98.2, pulse 49, respirations 16, blood pressure 166/81, oxygen saturation 100% on room air. The patient's weight is 136 pounds. BMI is 22.0 kg/m2. General: She is alert, oriented x3, in no acute distress. Answering questions appropriately. Family at the bedside. HEENT: Pale conjunctivae. No icterus. PERRL. Neck: Supple. Lungs: Clear to auscultation. Cardiovascular: The patient is bradycardic. Abdomen: Soft. Tender in the right upper quadrant. Active bowel sounds heard in all 4 quadrants. Extremities: No clubbing, no cyanosis, no edema. Pedal pulses 2+ present bilaterally. Neurologic: She is alert, oriented x3. Nonfocal. Cranial nerves 2 to 12 grossly intact. LABS: WBCs are 13.21, RBC 2.81, hemoglobin 9.4, hematocrit is 28.8, platelet count is 509. Sodium 144, potassium 3.3, chloride is 108, carbon dioxide is 25, anion gap 11. BUN 5, creatinine 0.8, glucose is 97, calcium is 8.0, magnesium is 1.6. Total bilirubin is 0.52, AST 16, ALT 23, alkaline phosphatase 106, albumin is 2.8. Urinalysis: The patient's occult blood was positive. C difficile toxin was negative. Shiga toxin was negative. Toxicology report showed presumptive positive cannabinoids. Her influenza A and B was negative. IMAGING: Abdominal ultrasound has shown thickened gallbladder wall. Tenderness of gallbladder appears to represent cholecystitis. HIDA scan showed prompt visualization of the gallbladder within normal limits. Gallbladder ejection fraction of 36%. IMPRESSION AND PLAN: 1. Anemia. 2. Hypokalemia. 3. Right upper quadrant pain. 4. Cholecystitis. 5. Nausea and vomiting. PLAN: Ms. Lilly is a 18-year-old, female with a history of eczema. GI has been consulted for her GI bleed and anemia. The patient has currently denied having any bleeding episodes. She did have her menstrual cycle which ended yesterday. The patient's hemoglobin and hematocrit today is 9.54 and 28.8. The patient is currently receiving antibiotic vancomycin and Rocephin. She is on PPIs twice a day and Carafate 1 gram before meals and at bedtime. For nausea and vomiting, she is on antiemetic Zofran. The patient is being followed by the surgeon. We currently do not plan to do any EGD's or colonoscopies on the patient. We will follow her up as an outpatient when she is discharged from the hospital if she continues to have any GI problems We will sign off for now. This plan was discussed with Dr. Vaughn. Thank you for your consult and please call us for any further questions or concerns. Dictated by BELA Conde for Moody Vaughn MD [facility]
[2019-05-17] MEDS: NS 1,000 ML IV SCH ×3 (15:20→21:37)
--- NOTE | 2019-05-17 19:42 | GENERAL SURGERY CONSULTATION ---
DATE: 05/17/2019 REASON FOR CONSULTATION: Cholecystitis. HISTORY OF PRESENT ILLNESS: This is a 18-year-old female who presented to the hospital 5 days ago with complaints of nausea, vomiting, and upper abdominal pain that had been going on about a week. She says the symptoms come and go and are typically worse after eating. She has also had some diarrhea and fever as high as 102. Currently she does not have any pain or nausea. She has never had any prior episodes similar to this. She has been diagnosed with urinary tract infection and there is concern for cholecystitis because of the upper abdominal pain, specifically more so on the right side with nausea and an ultrasound showing a thickened gallbladder wall. PAST MEDICAL HISTORY: None pertinent. PAST SURGICAL HISTORY: None. HOME MEDICATIONS: None. ALLERGIES: No known drug allergies. SOCIAL HISTORY: She denies tobacco, alcohol, or illicit drug use. She does report marijuana on the weekends. REVIEW OF SYSTEMS: Ten systems reviewed and negative except as noted above. CURRENT MEDICATIONS: Rocephin, vancomycin, Zofran, Protonix, Carafate. PHYSICAL EXAM: Temperature 98 degrees, pulse 57, respirations 16, blood pressure 149/86, O2 saturation 100%.General: Well-developed, well-nourished female in no distress who looks her stated age. HEENT: Normocephalic, atraumatic. Extraocular muscles intact. Pupils equal, round, reactive to light. Sclerae anicteric. Moist mucous membranes. Hearing grossly normal. Neck: Supple. No thyromegaly. CV: Regular rate and rhythm. Respiratory: Clear bilateral breath sounds. No work of breathing. Lymph: No cervical, supraclavicular or periumbilical lymph nodes appreciated. Gastrointestinal: Soft, nondistended. No organomegaly or mass. She is tender in the right upper quadrant without rebound or guarding. Extremities: No clubbing, cyanosis, or edema. Skin: Warm and dry. No rash. Musculoskeletal: Moves all extremities equally and well. LABORATORY: White blood cell count 21,000 on admission now 13,000, hemoglobin 9.4, hematocrit 28.8, platelet count 509,000. Metabolic profile reviewed and is unremarkable. On admission, she did have a BUN of 28, creatinine of 1.9. These have now normalized. Liver function tests do show an alkaline phosphatase of 106 but otherwise are normal. She does have occult blood in her stool. Her C difficile toxin is negative. She is influenza A and B negative. IMAGING: Abdominal and pelvis CT scan on 05/13/2019 was negative. Abdominal ultrasound on 05/15/2019 shows a thickened gallbladder wall up to 5 mm. No shadowing gallstones were appreciated. The patient was tender over the gallbladder. HIDA scan done 05/16/2019 showed prompt visualization of the gallbladder with a 56% ejection fraction. ASSESSMENT AND PLAN: A 18-year-old female with acute cholecystitis. We are planning laparoscopic cholecystectomy tomorrow. We will perform cholangiogram. I discussed risks and benefits with her including bleeding, infection, injury to surrounding organs such as the intestines or bile duct, incisional hernia and other imponderables. She understands and agrees to proceed. cc: Get Pickard MD
[2019-05-17] MEDS: ROCEPHIN 1 GM in NS 50 ML IV SCH ×2 (21:37→22:14)
[2019-05-18] MEDS ORDERED: VANCOMYCIN 1,350 MG in NS 250 ML IV SCH (03:21)
[2019-05-18] MEDS: VANCOMYCIN 1,350 MG in NS 250 ML IV SCH (04:01)
[2019-05-18] MEDS: NS 1,000 ML IV SCH (04:01)
[2019-05-18] MEDS: CARAFATE LIQUID PO SCH (06:26)
[2019-05-18 07:09] LABS: BASO# 0.12 X1000 (0.0-0.2); BASO% 0.9 % (0.0-0.8); EOS# 0.47 X1000 (0.0-0.7); EOS% 3.5 % (0.0-10.0); HEMATOCRIT 32.9 % (37.0-47.0); HEMOGLOBIN 10.7 g/dL (12.0-16.0); IMM GRAN% 3.8 % (0.0-0.5); MCH 24.9 PG (27-31); MCHC 32.5 g/dL (33-37); MCV 76.5 FL (81-99); MONO# 1.46 X1000 (0.11-0.59); MPV 9.3 FL (7.4-10.4); NEUT# 8.78 X1000 (1.4-6.5); NEUT% 65.8 % (42.2-75.2); PLT 673 X1000 (130-400); RDW 17.4 % (11.5-14.5); WBC 13.33 X1000 (4.8-10.8)
[2019-05-18] MEDS ORDERED: HURRICAINE SPRAY (DOSE) ONE (07:13)
[2019-05-18] MEDS ORDERED: MARCAINE 0.25% PF/EPI 1:200,000 ONE (07:22)
[2019-05-18] MEDS ORDERED: SODIUM CHLORIDE 0.9% ONE (07:23)
[2019-05-18] MEDS ORDERED: LR 1,000 ML ONE (07:23)
[2019-05-18 07:24] LABS: AGAP 12; ALB/GLOB RATIO 0.7; ALBUMIN 2.9 g/dL (3.5-5.0); ALKALINE PHOSPHATASE 106 U/L (32-104); BUN 3 mg/dL (8-22); CALCIUM 8.4 mg/dL (8.8-10.2); CHLORIDE 103 mmol/L (98-107); COSMO 276; CREATININE 0.7 mg/dL (0.5-0.9); ESTIMATED GFR > 60; GLUCOSE 92 mg/dL (70-104); GOT 12 U/L (10-30); GPT 18 U/L (10-36); MAGNESIUM 1.6 mg/dL (1.5-2.7); POTASSIUM 2.9 mmol/L (3.5-5.1); SODIUM 140 mmol/L (136-145); TCO2 25 mmol/L (25-35); TOTAL BILIRUBIN 0.57 mg/dL (0.20-1.00); TOTAL PROTEIN 7.2 g/dL (6.3-8.3)
[2019-05-18] MEDS ORDERED: ROBINUL ONE ×2 (07:26→08:14)
[2019-05-18] MEDS ORDERED: ZEMURON ONE (07:26)
[2019-05-18] MEDS ORDERED: XYLOCAINE-MPF 2% ONE (07:26)
[2019-05-18] MEDS ORDERED: FENTANYL ONE (07:26)
[2019-05-18] MEDS ORDERED: QUELICIN (DOSE) ONE (07:26)
[2019-05-18] MEDS ORDERED: DIPRIVAN 1% ONE (07:26)
[2019-05-18] MEDS ORDERED: NEOSTIGMINE ONE (07:28)
[2019-05-18] MEDS ORDERED: ZOFRAN ONE (07:29)
[2019-05-18] MEDS ORDERED: VERSED ONE (07:56)
[2019-05-18] MEDS ORDERED: DECADRON ONE (08:10)
[2019-05-18] MEDS ORDERED: DEMEROL ONE (08:22)
--- NOTE | 2019-05-18 08:52 | Diag Imaging Result Doc PS360 ---
EXAM: OPERATIVE CHOLANGIOGRAM INDICATION: GALLBLADDER TECHNIQUE: COMPARISON: None. FINDINGS: A single spot fluoroscopic image of the opacified common bile duct was provided, which was performed intraoperatively by Dr. Get Pickard. The common bile duct appears normal in caliber with no discrete filling defect or stricture. Contrast is seen flowing normally into small bowel. IMPRESSION: As above. Please correlate with live fluoroscopic imaging. Electronically signed by Sean Carpio 05/18/2019 8:49 AM
[2019-05-18] MEDS ORDERED: BLISTEX MEDICATED BERRY LIP BALM ONE (09:11)
--- NOTE | 2019-05-18 10:25 | OPERATIVE NOTE ---
PROCEDURE DATE: 05/18/2019 PREOPERATIVE DIAGNOSIS: Acute cholecystitis. POSTOPERATIVE DIAGNOSIS: Acute cholecystitis and umbilical hernia. SURGEON: Dr. Get Pickard. PROCEDURE: Laparoscopic cholecystectomy with operative cholangiogram and open umbilical hernia repair. SURGEON: Get Pickard MD. ANESTHESIA: General. ESTIMATED BLOOD LOSS: 10 mL. COMPLICATIONS: None apparent. SPECIMENS: Gallbladder. FINDINGS: The gallbladder had an edematous wall. There was a small umbilical hernia which we repaired primarily with suture and no mesh. TECHNIQUE: The patient was brought to the operating room and placed supine on the table. General anesthesia was induced. She was prepped and draped in usual sterile fashion. 0.25% Marcaine with epinephrine was used to anesthetize our incisions. An incision was made above the umbilicus. This was a curvilinear supraumbilical incision. The dissection was carried down to the umbilical stalk, which was dissected out with a hemostat. I then the hernia sac from the umbilical skin sharply with a knife. I then entered the peritoneal cavity under direct vision with the Optiview device. Pneumoperitoneum was established. The camera was inserted. There was no evidence of injury to underlying structures. She was placed in reverse Trendelenburg and left rotation. Three 5 mm incision ports were placed across the epigastrium and right upper quadrant. The dome of the gallbladder was grasped by the assistant to the ceo with an Allis clamp and lifted up superiorly. The triangle of Calot was then dissected out with the [place] forceps and hook cautery until the critical view was obtained. The gallbladder liver junction was seen. There were only 2 structures entering the gallbladder, the cystic duct and cystic artery. A clip was placed on the distal cystic duct. A ductotomy was made proximal to this with scissors, a 14-gauge Angiocath was passed through the right upper quadrant. The taut cholangiogram catheter was passed through this into the cystic duct and held in place with a clip. The cholangiogram was performed with findings as noted above. The clip catheter and Angiocath were removed. Two clips were placed on the proximal cystic duct. It was divided distal to these with scissors. The cystic artery was clipped proximally and distally and incised between with scissors. The gallbladder was then removed from the liver bed using hook cautery obtaining hemostasis along the way. After it was removed, it was placed in an EndoCatch bag. I irrigated with saline. There was minimal bleeding from the liver edge which was controlled with cautery, suctioned out the old blood and irrigation. The gallbladder and bag were brought up into the umbilical port site and removed. The ports were all removed. The abdomen was desufflated. The umbilical hernia site was closed primarily with 2 [id number] 0 Vicryl. The skin was closed with subcuticular 4-0 Biosyn. There were no apparent complications. She was awakened in stable condition and transferred to the recovery room. cc: Get Pickard MD
[2019-05-18] MEDS ORDERED: NORCO-7.5 PO PRN (11:09)
[2019-05-18 11:48] VITALS: BP 151/80
== END 2019-05-18 11:59 | disposition home or self-care (01) | DRG 418 ==
LOC: P.ED 14:32 → P.MEDSURG 20:24 → SUATTDRO 20:24 → 4N 05-16 19:16
PROVIDERS: ATTEND Internal Medicine